=== PATIENT | male | born 1995 | race Caucasian/White ===

== ENCOUNTER 2016-09-07 18:30 | Emergency (ER) | payer OTHER ==
[~2016-09-07] VITALS: Ht 167.6 cm; Wt 66.7 kg
[~2016-09-07 18:30] MED LIST: DIPH25CA65 PO; EPP3 IM; EPP3/2 INJ
[2016-09-07 18:32] VITALS: TEMP 37.5; Ht 167.6 cm; Wt 66.7 kg
[2016-09-07] MEDS ORDERED: METHYLPREDNISOLONE 125 MG VIAL ONE (18:39)
[2016-09-07] MEDS ORDERED: DiphenhydrAMINE HCL 50 MG/ML VIAL ONE (18:40)
[2016-09-07] MEDS ORDERED: METHYLPREDNISOLONE 125 MG VIAL IV STA (18:40)
[2016-09-07] MEDS ORDERED: DiphenhydrAMINE HCL 50 MG/ML VIAL IV STA (18:40)
[2016-09-07] MEDS ORDERED: SODIUM CHLORIDE 0.9% 1000ML 1,000 ML IV STA (18:40)
[2016-09-07] MEDS ORDERED: RANITIDINE HCL 150 MG TAB PO STA (18:40)
[2016-09-07] MEDS ORDERED: PRED20TA2 PO (19:26)
[2016-09-07] MEDS ORDERED: EPP3/2 IM (19:27)
[2016-09-07] MEDS ORDERED: RANI150T3 PO (19:27)
--- NOTE | 2016-09-07 19:37 | EMERGENCY ROOM VISIT NOTE ---
History Report prepared by Carmenza: Aydee Adam Under the Supervision of: Dr. Ramu Multani M.D. First contact with patient: 18:39 Chief Complaint: ALLERGIC REACTION Stated Complaint: ALLERGIC REACTION History of Present Illness The patient is a 20 year old male who presents to the Emergency Room with complaints of an episode of an allergic reaction occurring just [employer]ACHT [employer]DER. The patient was playing soccer and suddenly developed shortness of breath and blurred vision. He notes a red rash over his body and swelling to his face. He states that this has happened twice in the past at the same location. He is unsure what he is allergic to. 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 A total of 10 systems reviewed and were otherwise negative. Past Medical & Surgical Medical Problems: (1) Alcoholic intoxication (2) H/O allergic reaction (3) No Known Active Medical Problems Family History No pertinent family history Social History Smoking Status: Current Every Day Smoker Drug Use: none, marijuana Marital Status: single Housing Status: lives with roommate Occupation Status: [employer] student Current/Historical Medications Scheduled Epinephrine (Epipen), 0.3 MG IM UD Prednisone (Prednisone Tab), 0 PO DAILY Ranitidine Hcl (Zantac), 150 MG PO BID Scheduled PRN Epinephrine (Epipen 2-Kenny), 1 APPLN INJ UD PRN for ALLERGIC REACTION Allergies Coded Allergies: No Known Allergies (Unverified , 03/05/16) Physical Exam Vital Signs Date Time Temp Pulse Resp B/P Pulse Ox O2 Delivery O2 Flow Rate FiO2 09/07/16 20:40 102 18 98/60 94 09/07/16 20:13 102 18 98/60 94 Room Air 09/07/16 20:03 74 21 96/54 94 Room Air 09/07/16 19:10 94 09/07/16 18:32 37.5 60 18 149/103 90 Room Air Physical Exam GENERAL: Patient is a healthy-appearing well-nourished 20 year old male in no acute distress. HEAD: Normocephalic atraumatic EYES: Ocular movements intact pupils equal and react to light OROPHARYNX mucous membranes are moist no exudates present no erythema or edema present NECK: Supple no nuchal rigidity CHEST: Good equal expansion LUNGS: Wheezes at the bases. CARDIAC: Normal S1 and S2 ABDOMEN: Soft nontender no guarding BACK: No CVA tenderness EXTREMITIES: No pain upon palpation normal muscle strength in all groups no clubbing cyanosis or edema SKIN: Diffuse urticarial rash. NEURO: Patient is following commands is answering questions appropriately. Alert and oriented x3 Cranial Nerves 2-12 grossly intact Medical Decision & Procedures Medications Administered Medications (Trade) Dose Ordered Sig/Uriel Route Start Time Stop Time Status Last Admin Dose Admin Sodium Chloride (Nss 1000ml) 1,000 ml @ 999 mls/hr Q1H1M STAT IV 09/07/16 18:40 09/07/16 19:40 DC 09/07/16 18:40 999 MLS/HR Ranitidine HCl (zANTac TAB) 150 mg NOW STAT PO 09/07/16 18:40 09/07/16 18:42 DC 09/07/16 18:40 150 MG Methylprednisolone Sodium Succinate (Solu-Medrol IV) 125 mg STK-MED ONCE .ROUTE 09/07/16 18:39 09/07/16 18:41 DC 09/07/16 18:47 125 MG Diphenhydramine HCl (Benadryl Inj) 50 mg STK-MED ONCE .ROUTE 09/07/16 18:40 09/07/16 18:41 DC 09/07/16 18:46 50 MG ED Course 183: Past medical records reviewed. The patient was evaluated in room C6. A complete history and physical examination was performed. 0: Benadryl 50 mg IV, Zantac tab 150 mg PO , Solu-Medrol 125 mg IV, NSS 1000 ml @ 999 mls/hr IV 1918: I reassessed the patient at this time. He is feeling better and resting comfortably. I discussed the results and treatment plan with the patient. I answered all pertaining questions that he had. He expressed understanding and verbalized agreement. The patient will be discharged home. Medical Decision Differential diagnosis: Etiologies such as allergic reaction, anaphylaxis, urticaria, Mujica-Mp syndrome, toxic epidermal necrolysis, erythema multiforme, cellulitis, as well as others were entertained. This is a 20-year-old male who presents emergency department complaining of shortness of breath and an urticarial rash. Patient is wheezing on examination and is appearing to have a allergic reaction. An IV was quickly established and the patient given site Medrol Zantac and Benadryl. Repeat examination revealed much improvement patient's symptoms. The patient was given a course of prednisone as well as Zantac. I also prescribed an EpiPen difficulty breathing and cannot get to the emergency department. Patient was in agreement with the treatment plan. Impression Primary Impression: Allergic reaction Scribe Attestation The scribe's documentation has been prepared under my direction and personally reviewed by me in its entirety. I confirm that the note above accurately reflects all work, treatment, procedures, and medical decision making performed by me. Departure Information Dispostion Home / Self-Care Prescriptions Epinephrine (EPIPEN) 0.3 Mg/0.3 Ml Inj 0.3 MG IM UD, #2 BOX Prov: Ramu Multani MD 09/07/16 Ranitidine Hcl (ZANTAC) 150 Mg Tab 150 MG PO BID for 5 Days, #10 TAB Prov: Ramu Multani MD 09/07/16 Prednisone (Prednisone Tab) 20 Mg Tab 0 PO DAILY, #7 TAB 2 TABS DAILY FOR 2 DAYS, THEN 1 TAB DAILY FOR 2 DAYS, THEN 1/2 TAB DAILY FOR 2 DAYS. Prov: Ramu Multani MD 09/07/16 Referrals [facility] (PCP) Forms HOME CARE DOCUMENTATION FORM, IMPORTANT VISIT INFORMATION, School Instructions, Work Instructions Patient Instructions My [facility] Additional Instructions Take 50 mg Benadryl every 6 hours as needed You have been examined and treated today on an emergency basis only. This is not a substitute for, or an effort to provide, complete comprehensive medical care. It is impossible to recognize and treat all injuries or illnesses in a single emergency department visit. It is therefore important that you follow up closely with [facility]. Call as soon as possible for an appointment. Thank you for your time and consideration. I look forward to speaking with you again soon. Please don't hesitate to call us if you have any questions. Problem Qualifiers Primary Impression: Allergic reaction Encounter type: initial encounter Qualified Codes: T78.40XA - Allergy, unspecified, initial encounter
[2016-09-07 20:40] VITALS: BP 98/60; PULSE 102; O2SAT 94
== END 2016-09-07 20:41 | disposition home or self-care (01) ==
LOC: C.EDB 18:31 → C.EDA 20:41
DX: T78.40XA Allergy, unspecified, initial encounter (principal); F17.200 Nicotine dependence, unspecified, uncomplicated